=== PATIENT | female | born 1980 | race Caucasian/White ===

== ENCOUNTER 2018-01-31 19:38 | Emergency (ER) | payer SELFPAY ==
[2018-01-31] MEDS ORDERED: Ketorolac Tromethamine 60 MG/2 ML VIAL ONE (19:49)
[2018-01-31] MEDS ORDERED: Acetaminophen/Codeine 30-300mg Tablet ONE (19:49)
[2018-01-31] MEDS ORDERED: predniSONE 20 MG TAB ONE (19:50)
== END 2018-01-31 20:10 | disposition home or self-care (01) ==
LOC: BURERS 19:38
DX: M54.5 Low back pain (principal); F17.210 Nicotine dependence, cigarettes, uncomplicated; K86.1 Other chronic pancreatitis
CPT/HCPCS: 96372; J1885; J7506